=== PATIENT | male | born 1985 | race American Indian/Alaskan Native ===

== ENCOUNTER 2017-03-29 04:10 | Emergency (ER) | payer SELFPAY ==
--- NOTE | 2017-03-29 04:59 | Emergency Department Report ---
ED CPR HPI - General Chief Complaint: Cardiac Arrest/CPR Stated Complaint: OVERDOSE Time Seen by Provider: 03/29/17 04:53 Source: EMS Mode of arrival: Stretcher Limitations: Other - History of Present Illness Initial Comments: This is a unidentified -[place] male who appears to be in his 20s or 30s who presents to the emergency department via EMS after an apparent overdose causing cardiac arrest. Heroin and methamphetamines were found in the home or apartment where the 911 call was made. Allegedly there was a female who made the calls EMS who admitted that she and the patient were doing drugs and that they went to sleep sometime after midnight. When she woke up he was unresponsive and pulseless. [facility] [place] police were first on scene at about 0315 and started CPR. EMS arrived shortly afterwards and found the patient to be cold and rigid, so there is a chance that he had been for even longer. They placed a Combitube and continued ACLS protocol until the point where he presented to [facility]. During this time he got back valve ventilation, chest compressions, a total of 5 rounds of epinephrine, 1 of sodium bicarbonate, 2 mg of Narcan. The patient was asystolic and pulseless the entire time. When he got to the emergency department, he did in fact appear cold and rigid but was still pulseless and asystolic. Ultrasound was used to look at his heart and there was no movement whatsoever. ED Review of Systems ROS: Stated complaint: OVERDOSE Other details as noted in HPI Comment: Unobtainable due to pts medical conditions ED Physical Exam - General Limitations: Other - Other Other exam information: GENERAL: Patient is ill-appearing, unresponsive. HENT: Normocephalic. Atraumatic. Patient has moist mucous membranes. EYES: Pupils are fixed and dilated. NECK: Rigid. Trachea is midline. CHEST/LUNGS: No spontaneous breath sounds. HEART/CARDIOVASCULAR: No spontaneous heart sounds. ABDOMEN: Abdomen is soft. There is no abdominal distention. SKIN: Skin is cold but dry. NEURO: Patient is unresponsive to verbal or painful stimuli. MUSCULOSKELETAL: There are no deformities to the extremities. No palpable radial or femoral pulse. ED Medical Decision Making - Medical Decision Making Last known time normal was somewhere close to midnight. [place] police were first on scene at about 0315 and started CPR. EMS arrived shortly afterwards and found the patient to be cold and rigid, so there is a chance that he had been for even longer. They placed a Combitube and continued ACLS protocol until the point where he presented to [facility]. During this time he got bag valve ventilation, chest compressions, a total of 5 rounds of epinephrine, 1 of sodium bicarbonate, 2 mg of Narcan. The patient was asystolic and pulseless the entire time. When he got to the emergency department, he did in fact appear cold and rigid but was still pulseless and asystolic. Ultrasound was used to look at his heart and there was no movement whatsoever. Time of call at 407 AM Critical Care Time: No Critical care attestation.: If time is entered above; I have spent that time in minutes in the direct care of this critically ill patient, excluding procedure time. ED Disposition Clinical Impression: Cardiac arrest Overdose Qualifiers: Encounter type: initial encounter Injury intent: undetermined intent Qualified Code(s): T50.904A - Poisoning by unspecified drugs, medicaments and biological substances, undetermined, initial encounter Disposition: DC-20 Is pt being admited?: No Condition: Stable Time of Disposition: 05:01
== END 2017-03-29 04:55 ==
LOC: EDBD 04:10 → ED 04:10
DX: I46.9 Cardiac arrest, cause unspecified (principal)
CPT/HCPCS: 92950; 99285